=== PATIENT | female | born 1980 | race Caucasian/White ===

== ENCOUNTER 2016-10-09 23:50 | Observation (INO) | payer MEDICAID ==
[~2016-10-09] VITALS: Ht 165.1 cm; Wt 82.1 kg
[2016-10-09 23:52] VITALS: BP 120/75
[2016-10-10] VITALS (9 sets, daily range): BP systolic 104–174; BP diastolic 62–83
[2016-10-10] MEDS ORDERED: POTASSIUM CHLO20 ME2 PO (00:06)
[2016-10-10] MEDS ORDERED: FLUOXETINE20 MG PO (00:07)
[2016-10-10] MEDS ORDERED: GABAPENTIN300 MG PO (00:08)
[2016-10-10] MEDS ORDERED: GEODON60 MG PO (00:09)
[2016-10-10] MEDS ORDERED: LAMICTAL 100 M100 MG PO (00:10)
[2016-10-10] MEDS ORDERED: SEROQUEL 100MG100 MG PO (00:10)
--- NOTE | 2016-10-10 00:21 | Emergency Room Report ---
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 She was attempting to harm herself and feeling depressed because of eviction from home. SHe had a seizure lasting about 20-30 seconds during triage. She immediately woke up and was oriented after a few seconds. Approximately 70 neurontin are missing (filled today), approximately 35 prozac missing, and an unknown amount of potassium capsule 20meq (under 14). 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 N Clinical Suspician of Infection? N Mental Status: 1 - Regular (Normal Baseline) Sepsis Risk:Possible Sepsis Risk Have you (or family members/close friends) recently traveled outside the [place]? N If Yes, where/when: Have you had exposure to infectious disease within the past month? N TB? Other? Specify: Source patient, RN notes reviewed, family, EMS, old records Exam Limitations no limitations Comment pt with hx of depression and followed by don and today with intent took neurotin and prozac and kcl with feeling to harm herself - no prev episodes and no etoh Cardiac Chest Pain Chest pain indicative of cardiac No Timing/Duration this evening Severity moderate ALLERGIES Coded Allergies: No Known Allergies (10/10/16) Home Medications Reported Medications POTASSIUM CHL (Potassium Chloride) 20 MEQ PO BID Fluoxetine Hcl (Fluoxetine 20MG) 80 MG PO DAILY Gabapentin (Gabapentin 300MG) 300 MG PO QID ZIPRASIDONE HCL (Geodon) 60 MG PO BID QUETIAPINE FUMARATE (Quetiapine Fumarate) 300 MG PO DAILY Lamotrigine (Lamictal 100Mg) 100 MG PO BID History Medical History General CAD? No Angina: No [place]: No Hypertension? No Hyperlipidemia? No CHF? No DVT? No PE? No COPD? No Asthma? No Anemia? No GERD? No Gastric ulcers? No GI Bleed? No Hernia? No Thyroid Problems? No Hypothyroidism? No CVA? No Seizures? Yes Diabetes? No Renal Insuffiency? No End Stage Renal Disease? No UTI? No Stones? No BPH? No GB Disease: No Nephritic Syndrome? No Asplenia? No Hepatitis? No Sickle Cell Disease? No Arthritis? No Migraines? No Cataracts? No Glaucoma? No MRSA? No HIV? No TB? No Anxiety? Yes Depression? Yes Cancer? No More? 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 Respiratory denies cough, denies shortness of breath, denies wheezing Cardiovascular denies chest pain, denies syncope Gastrointestinal denies abdominal pain, denies diarrhea, denies vomiting Genitourinary denies: dysuria, frequency, hesitancy, hematuria. Musculoskeletal denies back pain, denies joint pain, denies neck pain Skin denies rash Psychiatric/Neurological see HPI, depressed, denies headache, denies seizure Physical Exam Vital Signs Vital Signs Date Time Temp Pulse Resp B/P Pulse O2 O2 Flow FiO2 Ox Delivery Rate 10/10 0113 75 18 185/98 97 10/10 0110 77 18 118/90 97 10/10 0040 89 20 151/71 98 10/09 2352 98.8 120 20 120/75 95 - WBC >12,000 or <4,000 or 10% bands? 2 or more SIRS Criteria Met? B/P:185/98 MAP:90 Creatinine >2.0? UA output<0.5ml/kg/hr for 2 hrs? Platelet count >100,000? Lactate >2.0mmol/1? INR >1.2 or PTT > than 60 sec? Evidence of Organ Dysfunction? Provider documented clinical suspician of infection? N Sepsis Criteria Count: 2 Sepsis Risk: Possible Sepsis Risk General Appearance no apparent distress Eye Exam - bilateral eye PERRL, bilateral eye EOMI Ear, Nose, Throat normal ENT inspection Neck non-tender Respiratory Status No: respiratory distress. Lung Sounds bilateral: lungs clear. Cardiovascular regular rate/rhythm Peripheral Pulses Pulses normal Yes Gastrointestinal soft Extremities normal inspection Strength 4 Upper Ext (L), 4 Upper Ext (R), 4 Lower Ext (L), 4 Lower Ext (R) Neurologic alert, limb driver II-XII nml as tested, no motor/sensory deficits Reflexes Reflexes normal No Mental status depressed affect, reported feeling suicidial Skin intact Medical Decision Making LABS/Meds/Orders Pt receiving controlled substance in ED? No Results/Orders Laboratory Tests 10/10/16 0035: Opiates Screen NEGATIVE, Urine Methadone Screen NEGATIVE, Barbiturates NEGATIVE, Phencyclidine Screen NEGATIVE, Amphetamines Screen NEGATIVE, Benzodiazepines Screen NEGATIVE, Cocaine Screen NEGATIVE, Marijuana (THC) Screen NEGATIVE, Urine Color Pending, Urine Appearance Pending, Urine pH Pending, Ur Specific [place] Pending 10/10/16 0000: Alcohols Pending 10/10/16 0000: Sodium 137, Potassium 4.1, Chloride 100, Carbon Dioxide 21 L, BUN 10, Creatinine 1.1 H, Estimated Creat Clear 91, Estimated GFR (MDRD) 56 L, Glucose 108 H, Calcium 9.5, Total Bilirubin 0.3, AST 19, ALT 21, Alkaline Phosphatase 136 H, Creatine Kinase 181, CK-MB (CK-2) Rel Index 1.1, CK and CKMB Interp 2.0, Troponin I < 0.02, Total Protein 8.3 H, Albumin 3.9, Globulin 4.4 H, Albumin/ Globulin Ratio 0.9 L, WBC 18.5 H, RBC 5.80 H, Hgb 17.9 H, Hct 53.8 H, MCV 92.8, RDW 15.4, Plt Count 193, Gran % 80.7 H, Gran # 14.9 H, Total Counted Pending, Lymphocytes % 15.9, Monocytes % 3.4, Neutrophils Pending, Lymphocytes ( Manual) Pending, Lymphocytes # 2.9, Monocytes # 0.6, Platelet Estimate Pending, PUBS MCHC 33.3, MCH 30.9, Salicylates 4.2, Acetaminophen 0 L Current Medication Orders Sig/Anirudh Start time Last Medication Dose Route Stop Time Status Admin Sodium Chloride 10 ML PRN PRN 10/10 0030 AC IV 10/11 0018 Sodium Chloride 1,000 ML .STK-MED ONE 10/10 0028 DC IV Orders Procedure Date/time Status Decision to admit 10/10 115 Active URINALYSIS/COMPLETE 01/17 0113 Active ALCOHOL 01/17 0108 Active DRUG ABUSE SCREEN (TRIAGE) 10/10 0026 Complete ELECTROCARDIOGRAM REQUEST 10/10 0018 Active IV SALINE LOCK 10/10 0018 Active SALICYLATE 10/10 0018 Complete CBC WITH AUTO DIFF 10/10 0018 Active CARDIAC ENZYMES 10/108 Complete CHEM 12 PROFILE 10/10 0018 Complete Acetaminophen 10/10 001 Complete DIFFERENTIAL-WBC 10/10 0000 Active CM/EKG 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 of ischemic chgs Departure Departure Time of Disposition 0118 Disposition Still a Patient Clinical Impression Primary Impression: Overdose Qualifiers: Encounter type: initial encounter Injury intent: intentional self- harm Qualified Code: T50.902A - Poisoning by unspecified drugs, medicaments and biological substances, intentional self-harm, initial encounter Secondary Impressions: Depression Qualifiers: Depression Type: reactive depression Qualified Code: F32.9 - Major depressive disorder, single episode, unspecified Condition STABLE Referrals Therese Norman MD discussed with dr norman ED Critical Care Critical Care No at 0119
--- NOTE | 2016-10-10 00:21 | Emergency Room Report ---
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 She was attempting to harm herself and feeling depressed because of eviction from home. SHe had a seizure lasting about 20-30 seconds during triage. She immediately woke up and was oriented after a few seconds. Approximately 70 neurontin are missing (filled today), approximately 35 prozac missing, and an unknown amount of potassium capsule 20meq (under 14). 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 N Clinical Suspician of Infection? N Mental Status: 1 - Regular (Normal Baseline) Sepsis Risk:Possible Sepsis Risk Have you (or family members/close friends) recently traveled outside the [place]? N If Yes, where/when: Have you had exposure to infectious disease within the past month? N TB? Other? Specify: Source patient, RN notes reviewed, family, EMS, old records Exam Limitations no limitations Comment pt with hx of depression and followed by don and today with intent took neurotin and prozac and kcl with feeling to harm herself - no prev episodes and no etoh Cardiac Chest Pain Chest pain indicative of cardiac No Timing/Duration this evening Severity moderate ALLERGIES Coded Allergies: No Known Allergies (10/10/16) Home Medications Reported Medications POTASSIUM CHL (Potassium Chloride) 20 MEQ PO BID Fluoxetine Hcl (Fluoxetine 20MG) 80 MG PO DAILY Gabapentin (Gabapentin 300MG) 300 MG PO QID ZIPRASIDONE HCL (Geodon) 60 MG PO BID QUETIAPINE FUMARATE (Quetiapine Fumarate) 300 MG PO DAILY Lamotrigine (Lamictal 100Mg) 100 MG PO BID History Medical History General CAD? No Angina: No [place]: No Hypertension? No Hyperlipidemia? No CHF? No DVT? No PE? No COPD? No Asthma? No Anemia? No GERD? No Gastric ulcers? No GI Bleed? No Hernia? No Thyroid Problems? No Hypothyroidism? No CVA? No Seizures? Yes Diabetes? No Renal Insuffiency? No End Stage Renal Disease? No UTI? No Stones? No BPH? No GB Disease: No Nephritic Syndrome? No Asplenia? No Hepatitis? No Sickle Cell Disease? No Arthritis? No Migraines? No Cataracts? No Glaucoma? No MRSA? No HIV? No TB? No Anxiety? Yes Depression? Yes Cancer? No More? 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 Respiratory denies cough, denies shortness of breath, denies wheezing Cardiovascular denies chest pain, denies syncope Gastrointestinal denies abdominal pain, denies diarrhea, denies vomiting Genitourinary denies: dysuria, frequency, hesitancy, hematuria. Musculoskeletal denies back pain, denies joint pain, denies neck pain Skin denies rash Psychiatric/Neurological see HPI, depressed, denies headache, denies seizure Physical Exam Vital Signs Vital Signs Date Time Temp Pulse Resp B/P Pulse O2 O2 Flow FiO2 Ox Delivery Rate 10/10 0113 75 18 185/98 97 10/10 0110 77 18 118/90 97 10/10 0040 89 20 151/71 98 10/09 2352 98.8 120 20 120/75 95 - WBC >12,000 or <4,000 or 10% bands? 2 or more SIRS Criteria Met? B/P:185/98 MAP:90 Creatinine >2.0? UA output<0.5ml/kg/hr for 2 hrs? Platelet count >100,000? Lactate >2.0mmol/1? INR >1.2 or PTT > than 60 sec? Evidence of Organ Dysfunction? Provider documented clinical suspician of infection? N Sepsis Criteria Count: 2 Sepsis Risk: Possible Sepsis Risk General Appearance no apparent distress Eye Exam - bilateral eye PERRL, bilateral eye EOMI Ear, Nose, Throat normal ENT inspection Neck non-tender Respiratory Status No: respiratory distress. Lung Sounds bilateral: lungs clear. Cardiovascular regular rate/rhythm Peripheral Pulses Pulses normal Yes Gastrointestinal soft Extremities normal inspection Strength 4 Upper Ext (L), 4 Upper Ext (R), 4 Lower Ext (L), 4 Lower Ext (R) Neurologic alert, appeals court associate justice II-XII nml as tested, no motor/sensory deficits Reflexes Reflexes normal No Mental status depressed affect, reported feeling suicidial Skin intact Medical Decision Making LABS/Meds/Orders Pt receiving controlled substance in ED? No Results/Orders Laboratory Tests 10/10/16 0035: Opiates Screen NEGATIVE, Urine Methadone Screen NEGATIVE, Barbiturates NEGATIVE, Phencyclidine Screen NEGATIVE, Amphetamines Screen NEGATIVE, Benzodiazepines Screen NEGATIVE, Cocaine Screen NEGATIVE, Marijuana (THC) Screen NEGATIVE, Urine Color Pending, Urine Appearance Pending, Urine pH Pending, Ur Specific [place] Pending 10/10/16 0000: Alcohols Pending 10/10/16 0000: Sodium 137, Potassium 4.1, Chloride 100, Carbon Dioxide 21 L, BUN 10, Creatinine 1.1 H, Estimated Creat Clear 91, Estimated GFR (MDRD) 56 L, Glucose 108 H, Calcium 9.5, Total Bilirubin 0.3, AST 19, ALT 21, Alkaline Phosphatase 136 H, Creatine Kinase 181, CK-MB (CK-2) Rel Index 1.1, CK and CKMB Interp 2.0, Troponin I < 0.02, Total Protein 8.3 H, Albumin 3.9, Globulin 4.4 H, Albumin/ Globulin Ratio 0.9 L, WBC 18.5 H, RBC 5.80 H, Hgb 17.9 H, Hct 53.8 H, MCV 92.8, RDW 15.4, Plt Count 193, Gran % 80.7 H, Gran # 14.9 H, Total Counted Pending, Lymphocytes % 15.9, Monocytes % 3.4, Neutrophils Pending, Lymphocytes ( Manual) Pending, Lymphocytes # 2.9, Monocytes # 0.6, Platelet Estimate Pending, PUBS MCHC 33.3, MCH 30.9, Salicylates 4.2, Acetaminophen 0 L Current Medication Orders Sig/Anirudh Start time Last Medication Dose Route Stop Time Status Admin Sodium Chloride 10 ML PRN PRN 10/10 0030 AC IV 10/11 0018 Sodium Chloride 1,000 ML .STK-MED ONE 10/10 0028 DC IV Orders Procedure Date/time Status Decision to admit 10/10 115 Active URINALYSIS/COMPLETE 01/17 0113 Active ALCOHOL 01/17 0108 Active DRUG ABUSE SCREEN (TRIAGE) 10/10 0026 Complete ELECTROCARDIOGRAM REQUEST 10/10 0018 Active IV SALINE LOCK 10/10 0018 Active SALICYLATE 10/10 0018 Complete CBC WITH AUTO DIFF 10/10 0018 Active CARDIAC ENZYMES 10/108 Complete CHEM 12 PROFILE 10/10 0018 Complete Acetaminophen 10/10 001 Complete DIFFERENTIAL-WBC 10/10 0000 Active CM/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 of ischemic chgs Departure Departure Time of Disposition 0118 Disposition Still a Patient Clinical Impression Primary Impression: Overdose Qualifiers: Encounter type: initial encounter Injury intent: intentional self- harm Qualified Code: T50.902A - Poisoning by unspecified drugs, medicaments and biological substances, intentional self-harm, initial encounter Secondary Impressions: Depression Qualifiers: Depression Type: reactive depression Qualified Code: F32.9 - Major depressive disorder, single episode, unspecified Condition STABLE Referrals Therese Norman MD discussed with dr norman ED Critical Care Critical Care No at 0119
[2016-10-10 00:29] LABS: HEMOGLOBIN 17.9 g/dL (12.2-16.2)
[2016-10-10 00:30] LABS: LYMPH # 2.9 K/mm3 (0.7-4.5); LYMPH % 15.9 % (10-50.0)
[2016-10-10 00:49] LABS: BUN 10 mg/dL (7-18)
[2016-10-10 00:50] LABS: GFR (ESTIMATED) 56 ML/MIN (59-)
[2016-10-10 00:56] LABS: AMPHETAMINES/METAMPHETAMINES NEGATIVE ng/mL (<1000)
[2016-10-10 01:22] LABS: URINE BILIRUBIN - DIPSTICK NEGATIVE (NEG); URINE BLOOD 2+ (NEG)
[2016-10-10 03:35] LABS: NEUTROPHILS 84 % (42-76)
[2016-10-10 06:55] LABS: HEMOGLOBIN 13.6 g/dL (12.2-16.2); LYMPH % 14.3 % (10-50.0)
[2016-10-10 06:56] LABS: LYMPH # 2.6 K/mm3 (0.7-4.5)
--- NOTE | 2016-10-10 07:41 | PHARMACY CLINIC NOTE ---
Patient Demographics Patient Demographics Admission date: 10/10/16 Date: 10/10/16 Time: 0740 Allergies Coded Allergies: No Known Allergies (10/10/16) HEIGHT- FT: 5 IN: 5.00 K.101 VTE General Information Labs: Laboratory Tests 10/10 10/10 0635 0000 Hematology Hgb (12.2 - 16.2 g/dL) 13.6 17.9 H Hct (37.0 - 47.0 %) 39.6 53.8 H Plt Count (142 - 424 K/mm3) 293 193 Disclaimer The following section includes nursing documentation that has been pulled in for pharmacy review. Patient's VTE score: 0 Patient's VTE Risk: VERY LOW RISK Clinical trial participant? No VTE prophylaxis NQF [id number] VTE prophylaxis ordered? Yes Type of prophylaxis/treatment: AMY at 0741
[2016-10-10] MEDS ORDERED: QUETIAPINE FUM300 M1 PO (07:44)
--- NOTE | 2016-10-10 08:35 | HISTORY AND PHYSICAL REPORT ---
History and Physical ([facility]CA) Date of admission: 10/10/16 Chief complaint: Overdose History: History of Present Illness: Ms. 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 This is the person who provides her with her medication. She apparently has anxiety, attention deficit/hyperactivity disorder , bipolar disorder, and PTSD. She has no family physician. She states she just moved here from [place] approximately 2 months ago and currently lives in a trailer. She is in the process of being evicted from the trailer because she cannot pay the bills. She states she will not be homeless and therefore took approximately 70 gabapentin, 35 Prozac, and 20 potassium. She states she was trying to kill herself because she would rather be than homeless. According to the patient she has never attempted anything like this in the past. She began having a seizure at home and her significant other brought her to the emergency room where she proceeded to have 2 more seizures. She has not had any since that time. She states today she feels dizzy and does have a headache. She feels like she is "here but not here." When asked if she would attempt to hurt herself again she stated she is not going to be homeless, and if she is going to be homeless, she would rather be . Past Medical History: Medical History: CAD? No Angina: No [place]: No Hypertension? No Hyperlipidemia? No CHF? No DVT? No PE? No COPD? No Asthma? No Anemia? No GERD? No Gastric ulcers? No GI Bleed? No Hernia? No Thyroid Problems? No Hypothyroidism? No CVA? No Seizures? Yes Diabetes? No Renal Insuffiency? No UTI? No Stones? No BPH? No GB Disease: No Nephritic Syndrome? No Asplenia? No Hepatitis? No Sickle Cell Disease? No Arthritis? No Migraines? No Cataracts? No Glaucoma? No MRSA? No HIV? No TB? No Anxiety? Yes Depression? Yes Cancer? No More? Yes Additional hx: 1. ADHD 2. BIPOLAR DEPRESSION 3. PTSD Surgical history: Previous Surgery?Y 1. Back Surgery 2. Tubal Ligation 3. Cholecystectomy Medications: Reported Medications Quetiapine Fumarate 150 MG PO QHS #15 TAB POTASSIUM CHL (Potassium Chloride) 20 MEQ PO BID Fluoxetine Hcl (Fluoxetine 20MG) 80 MG PO DAILY Gabapentin (Gabapentin 300MG) 300 MG PO QID ZIPRASIDONE HCL (Geodon) 60 MG PO BID Lamotrigine (Lamictal 100Mg) 100 MG PO BID Allergies: Coded Allergies: No Known Allergies (10/10/16) Family History: Family history: Postive for: DM. Negative for: CAD, HTN, cancer, hyperlipidemia, stroke. Social History: Smoking Hx Tobacco: Yes Smoker: Current Every Day Smoker Type: Cigarettes Packs/day: < 1 Pack Are you exposed to second hand Yes Alcohol: Alcohol: No Hx of Drug Use: Drug Use? No Review of Systems: Constitutional Positive for: fatigue, lethargy, malaise, weak. ENT No: nasal congestion, sore throat. Cardiovascular No: chest pain, edema, palpitations. Respiratory Positive for: shortness of air. No: productive cough (sputum), wheezing. GI No: abdominal pain, diarrhea, nausea, vomitting. (female) No: frequency, hematuria. Neurological Positive for: dizziness, headache, weakness. No: syncope. Musculoskeletal No: extremity pain, joint pain, myalgias. Psychiatric Positive for: anxious, depression, suicidal ideation. Physical Exam: Vital signs: 1ST Vital Signs Result Date Time Pulse Ox 95 10/09 2351 B/P 120/75 10/09 2351 Temp 98.8 10/09 2351 Pulse 120 10/09 2351 Resp 20 10/09 2351 O2 Delivery ROOM AIR 10/10 0217 Exam: General appearance: alert, awake, no acute distress Eyes: EOM's w/normal ROM, PERRLA ENT: mucous membranes moist, nose normal, pharynx normal, tympanic membranes normal Neck: non-tender, full range of motion, supple Cardiovascular: regular rate & rhythm Respiratory: clear to auscultation ABD: non-distended, normal bowel sounds, no rebound, soft, no tenderness, no guarding Extremities: no peripheral edema Musculoskeletal: equal muscle strength, motor intact, sensation intact Skin: normal color Neuro: brand recorder II-XII nml as tested, normal mood/affect, oriented, speech clear Lab data: Labs: Laboratory Tests 10/10/16 0635: Sodium 137, Potassium 4.9, Chloride 105, Carbon Dioxide 23, BUN 8, Creatinine 0.9, Estimated Creat Clear 112, Estimated GFR (MDRD) 71, Glucose 112 H, Calcium 9.1, Total Bilirubin 0.3, AST 18, ALT 18, Alkaline Phosphatase 133 H, Total Protein 7.5, Albumin 3.4, Globulin 4.1 H, Albumin/Globulin Ratio 0.8 L, WBC 18.3 H, RBC 4.30, Hgb 13.6, Hct 39.6, MCV 92.2, RDW 14.0, Plt Count 293, Gran % 81.9 H, Gran # 15.0 H, Lymphocytes % 14.3, Monocytes % 3.8, Lymphocytes # 2.6, Monocytes # 0.7, PUBS MCHC 34.3, MCH 31.6 H 10/10/16 0035: Opiates Screen NEGATIVE, Urine Methadone Screen NEGATIVE, Barbiturates NEGATIVE, Phencyclidine Screen NEGATIVE, Amphetamines Screen NEGATIVE, Benzodiazepines Screen NEGATIVE, Cocaine Screen NEGATIVE, Marijuana (THC) Screen NEGATIVE, Urine Color YELLOW, Urine Appearance CLEAR, Urine pH 5.5, Ur Specific [place] 1.020, Urine Protein NEGATIVE, Urine Ketones NEGATIVE, Urine Blood 2+ H, Urine Nitrate NEGATIVE, Urine Bilirubin NEGATIVE, Urine Urobilinogen 0.2, Ur Leukocyte Esterase NEGATIVE, Urine RBC 3-5, Urine Bacteria 1+, Urine Glucose NEGATIVE 10/10/16 0000: Alcohols 0 10/10/16 0000: Sodium 137, Potassium 4.1, Chloride 100, Carbon Dioxide 21 L, BUN 10, Creatinine 1.1 H, Estimated Creat Clear 91, Estimated GFR (MDRD) 56 L, Glucose 108 H, Calcium 9.5, Total Bilirubin 0.3, AST 19, ALT 21, Alkaline Phosphatase 136 H, Creatine Kinase 181, CK-MB (CK-2) Rel Index 1.1, CK and CKMB Interp 2.0, Troponin I < 0.02, Total Protein 8.3 H, Albumin 3.9, Globulin 4.4 H, Albumin/ Globulin Ratio 0.9 L, WBC 18.5 H, RBC 5.80 H, Hgb 17.9 H, Hct 53.8 H, MCV 92.8, RDW 15.4, Plt Count 193, Gran % 80.7 H, Gran # 14.9 H, Total Counted 100 , Lymphocytes % 15.9, Monocytes % 3.4, Neutrophils 84 H, Lymphocytes (Manual) 16, Lymphocytes # 2.9, Monocytes # 0.6, Platelet Estimate NORMAL, Anisocytosis 1 +, PUBS MCHC 33.3, MCH 30.9, Salicylates 4.2, Acetaminophen 0 L Diagnosis(es): 1. Suicide attempt Status: Acute 2. Overdose Status: Acute 3. Depression Status: Chronic 4. ADHD (attention deficit hyperactivity disorder) Status: Chronic 5. Bipolar 1 disorder Status: Chronic 6. Anxiety Status: Chronic 7. PTSD (post-traumatic stress disorder) Status: Chronic Plan: Pt currently has an elevated WBC with no known cause. U/A is normal. Will get a CXR today d/t some SOA and leukocytosis. Pt has "one on one" observation d/t her suicide attempt. She states she will try to hurt herself again if she becomes homeless. Will discuss disposition with Dr. Sheth. (Lisa Anne) Date of admission: 10/10/16 Diagnosis(es): 1. Suicide attempt Status: Acute 2. Overdose Status: Acute 3. Depression Status: Chronic 4. ADHD (attention deficit hyperactivity disorder) Status: Chronic 5. Bipolar 1 disorder Status: Chronic 6. Anxiety Status: Chronic 7. PTSD (post-traumatic stress disorder) Status: Chronic Plan: Patient seen and examined. She appears to be medically stable. The spells reported last night were not typical for seizures; no postictal state noted. Also, No obvious source of infection but agree with checking CBC and UA. Will look into options for psychiatric disposition and she is still expressing suicidal ideations. She states she would agree to an inpatient psych transfer it this can be arranged. (Therese Sheth MD) at [phone] at [phone]
--- NOTE | 2016-10-10 10:37 | RADIOLOGY REPORT PS360 ---
CHEST(2 VIEWS-NOT PORTABLE) HISTORY: SOA COMPARISON: None available FINDINGS: The cardiomediastinal silhouette and pulmonary vascularity are within normal limits. There are postsurgical changes on the right with resection of the right sixth rib posteriorly. There is blunting of the right CP angle likely related to chronic right-sided pleural thickening. There are no previous studies available for comparison. No lobar consolidation or collapse. There is minimal nodularity noted in the left lung base overlying the fifth rib anteriorly nonspecific. Quick rods are present. T9 vertebral bodies not well delineated on the lateral view. Thoracic spine films suggested for further evaluation of clinically warranted.. IMPRESSION: 1. Postsurgical changes with blunting of the right CP angle. 2. Quick kajal is noted with poor visualization of the T9 vertebral body which may be better evaluated with thoracic spine films.
--- NOTE | 2016-10-10 18:02 | ACUTE CARE PROGRESS NOTE (QUA) ---
Progress Notes Subjective Date 10/10/16 Time 1755 Note Throughout the day today, I have spoken to Louise Snider, psych [employer] who follows and manages Pastora's psych meds at [facility] as well as speaking to a psych nurse at [facility] and Dr. Presley, staff psychiatrist at [facility] and she has been accepted in transfer to [facility] this afternoon. Assessment/Plan Problem List 1. Suicide attempt Status: Acute 2. Overdose Status: Acute 3. Depression Status: Chronic 4. ADHD (attention deficit hyperactivity disorder) Status: Chronic 5. Bipolar 1 disorder Status: Chronic 6. Anxiety Status: Chronic 7. PTSD (post-traumatic stress disorder) Status: Chronic Plan: Transfer to [facility] via ambulance This inpt stay is expected to cross 2 MNs from start of care No at 1801
--- NOTE | 2016-10-10 18:02 | ACUTE CARE PROGRESS NOTE (QUA) ---
Progress Notes Subjective Date 10/10/16 Time 1755 Note Throughout the day today, I have spoken to Louise Snider, psych [employer] who follows and manages Pastora's psych meds at [facility] as well as speaking to a psych nurse at [facility] and Dr. Presley, staff psychiatrist at [facility] and she has been accepted in transfer to [facility] this afternoon. Assessment/Plan Problem List 1. Suicide attempt Status: Acute 2. Overdose Status: Acute 3. Depression Status: Chronic 4. ADHD (attention deficit hyperactivity disorder) Status: Chronic 5. Bipolar 1 disorder Status: Chronic 6. Anxiety Status: Chronic 7. PTSD (post-traumatic stress disorder) Status: Chronic Plan: Transfer to [facility] via ambulance This inpt stay is expected to cross 2 MNs from start of care No at 1801
[2016-10-11 00:07] VITALS: BP 127/78
[2016-10-11 04:17] VITALS: BP 124/75
[2016-10-11 07:33] VITALS: BP 130/71
--- NOTE | 2016-10-11 08:02 | ACUTE CARE PROGRESS NOTE (QUA) ---
Progress Notes Subjective Date 10/11/16 Time 0800 Note Pt feels better today. Denies any pain. No more NIXON or dizziness. Awaiting an ambulance to take her to [facility]. Objective Findings Last VS-Temp:97.6 B/P:130/71 Pulse:72 Resp:24 SaO2:95 ROOM AIR Last weight lbs:181 oz:0 K.101 Method:Bed Scales Exam General appearance: alert, awake, no acute distress Cardiovascular: regular rate & rhythm Respiratory: chest non-tender ABD: non-distended, normal bowel sounds, no rebound, soft, no tenderness, no guarding Extremities: no peripheral edema Assessment/Plan Problem List 1. Suicide attempt Status: Acute 2. Overdose Status: Acute 3. Depression Status: Chronic 4. ADHD (attention deficit hyperactivity disorder) Status: Chronic 5. Bipolar 1 disorder Status: Chronic 6. Anxiety Status: Chronic 7. PTSD (post-traumatic stress disorder) Status: Chronic Plan: Awaiting a ride to [facility] psychiatry. This inpt stay is expected to cross 2 MNs from start of care No (Lisa Anne) Subjective Date 10/11/16 Time 0820 Assessment/Plan Problem List 1. Suicide attempt Status: Acute 2. Overdose Status: Acute 3. Depression Status: Chronic 4. ADHD (attention deficit hyperactivity disorder) Status: Chronic 5. Bipolar 1 disorder Status: Chronic 6. Anxiety Status: Chronic 7. PTSD (post-traumatic stress disorder) Status: Chronic Plan: Discharge arrangements were made yesterday but could not arrange transport. SHe is stable to be transferred today to [facility]. (Therese Sheth MD) at 0801 at 0821
[2016-10-11 09:30] VITALS: BP 130/71
== END 2016-10-11 08:30 ==
LOC: ER 23:50 → 2ND 10-10 01:25 → ER 10-10 01:25 → 2ND 10-10 01:25
PROVIDERS: Emergency Medicine
DX: T43.222A Poisoning by selective serotonin reuptake inhibitors, intentional self-harm, initial encounter (principal); F32.9 Major depressive disorder, single episode, unspecified; Z72.0 Tobacco use; T42.6X2A Poisoning by other antiepileptic and sedative-hypnotic drugs, intentional self-harm, initial encounter; F31.9 Bipolar disorder, unspecified; Z59.0 Homelessness; F41.8 Other specified anxiety disorders; Z63.79 Other stressful life events affecting family and household
CPT/HCPCS: G0378; G6040